=== PATIENT | male | born 1960 | race Two or more races ===

== ENCOUNTER 2023-07-02 20:55 | Emergency (ER) | payer MEDICARE, MEDICAID ==
[~2023-07-02] VITALS: Ht 175.3 cm; Wt 69.1 kg
[2023-07-03] MEDS ORDERED: TRAM-626 PO (00:22)
[2023-07-03] MEDS: HYDROcodone-ACET 5/325MG TAB PO ONE (00:40)
[2023-07-03 01:24] VITALS: BP 138/81; PULSE 85; RESP 18; TEMP 98.7; O2SAT 94
== END 2023-07-03 01:28 | disposition home or self-care (01) ==
LOC: ER 20:55 → EDBD 20:55 → ER 07-03 01:28
DX: S83.92XA Sprain of unspecified site of left knee, initial encounter (principal); M25.462 Effusion, left knee; M17.12 Unilateral primary osteoarthritis, left knee; W01.0XXA Fall on same level from slipping, tripping and stumbling without subsequent striking against object, initial encounter; Y93.89 Activity, other specified; Y92.89 Other specified places as the place of occurrence of the external cause; Y99.8 Other external cause status
CPT/HCPCS: 29505; 73562